=== PATIENT | male | born 1985 | race African-American/Black ===

== ENCOUNTER 2020-02-17 21:49 | Emergency (ER) | payer OTHER ==
[~2020-02-17] VITALS: Ht 167.6 cm; Wt 70.0 kg
[2020-02-17] MEDS ORDERED: ALBUTEROL SULFATE 8GM INHALER. INH ONE (23:00)
[2020-02-17] MEDS ORDERED: predniSONE 10 MG TABLET PO ONE (23:00)
--- NOTE | 2020-02-17 23:08 | PHYS DOC ---
General Adult EDM: Chief Complaint: FEVER HPI: HPI: ".. I need a slip to get out of work... I had a fever.. 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 ".." I probably need to be off work...." Patient is a 34 year old male [facility] prisoner who presents with above hx and complaints fever, cough, and malaise. Patient recently transferred to [facility] after serving 6-[address] [facility] sentence for drug sales. Patient served time at [facility] one half which was at the camp. Patient denies any specific ill contacts but there have been cases of Covid at the [facility]. No history of exposure to tuberculosis. Patient has previous negative testing.. No recent travel. No history immunosuppression. Normally healthy. Patient did receive his tetanus and flu vaccination before recent transfer to the [facility]. Patient currently works at the [employer]. Review of Systems: Review of Systems: Constitutional: History of fever or chills Eyes: Denies change in visual acuity HENT: Denies nasal congestion or sore throat Respiratory: History of cough Cardiovascular: Denies chest pain or edema GI: Denies abdominal pain, nausea, vomiting, bloody stools or diarrhea : Denies dysuria Musculoskeletal: Denies back pain or joint pain Integument: Denies rash Neurologic: Denies headache, focal weakness or sensory changes Endocrine: Denies polyuria or polydipsia Lymphatic: Denies swollen glands Psychiatric: Denies depression or anxiety Family History: Family History: Noncontributory to presentation Current Medications: Current Meds: Current Medications Medications (Trade) Dose Ordered Sig/Fiona Start Time Stop Time Status Last Admin Dose Admin Albuterol Sulfate (Ventolin Hfa Inhaler) 2 puff 1X ONCE 02/17/20 23:00 02/17/20 23:01 UNV Prednisone (Prednisone) 50 mg 1X ONCE 02/17/20 23:00 02/17/20 23:01 UNV Allergies: Allergies: Allergies Coded Allergies Type Severity Reaction Last Updated Verified No Known Drug Allergies 02/17/20 No Physical Exam: PE: Constitutional: Well developed, well nourished, no acute distress, non-toxic appearance. [] HENT: Normocephalic, atraumatic, bilateral external ears normal, oropharynx moist, no oral exudates, nose slightly swollen turbinates with clear rhinorrhea.. Mild pharyngeal injection. Postnasal drainage. Eyes: PERRLA, EOMI, conjunctiva normal, no discharge. [] Neck: Normal range of motion, no tenderness, supple, no stridor. Palpable thyroid area. Cardiovascular:Heart rate regular rhythm, no murmur [] Lungs & Thorax: Bilateral breath sounds equal apex with scattered wheezes on auscultation [] Abdomen: Bowel sounds normal, soft, no tenderness, no masses, no pulsatile masses. [] Skin: Warm, dry, no erythema, no rash. [] Back: No tenderness, no CVA tenderness. [] Extremities: No tenderness, no cyanosis, no clubbing, ROM intact, no edema. [] Neurologic: Alert and oriented X 3, normal motor function, normal sensory function, no focal deficits noted. [] Psychologic: Affect anxious, judgement normal, mood normal. [] EKG: EKG: [] Radiology/Procedures: Radiology/Procedures: [][place] [id number] IMAGING REPORT Signed PATIENT: PATSY PARADA ACCOUNT: [id number] : 1985 LOCATION: ER AGE: 34 SEX: M EXAM STATUS: REG ER ORD. PHYSICIAN: YURY WEST MD REASON: COUGH, CHILLS, FEVER PROCEDURE: PORTABLE CHEST 1V INDICATION: Reason: COUGH, CHILLS, FEVER / Spl. Instructions: / History: COMPARISON: None. FINDINGS: Single view of chest obtained. Cardiac silhouette is not enlarged. No focal airspace consolidation or pulmonary edema. There is some deviation of the trachea to the right. IMPRESSION: * No focal airspace consolidation or pulmonary edema. * There is some deviation of the trachea to the right within the superior mediastinum. Nonspecific in nature with one of the more common causes including substernal goiter but nonspecific appearance and follow-up ultrasound could BE obtained to assess for thyroid tissue in the region. Electronically signed by: Aria Howard MD (02/17/2020 11:49 PM) [id number] DICTATED AND SIGNED BY: ARIA HOWARD MD DATE: 02/17/20 2349 CC: YURY WEST MD; PCP,NO ~ Heart Score: Risk Factors: Risk Factors: DM, Current or recent (<one month) smoker, HTN, HLP, family history of CAD, obesity. Risk Scores: Score 0 - 3: 2.5% MACE over next 6 weeks - Discharge Home Score 4 - 6: 20.3% MACE over next 6 weeks - Admit for Clinical Observation Score 7 - 10: 72.7% MACE over next 6 weeks - Early Invasive Strategies Course & Med Decision Making: Course & Med Decision Making Pertinent Labs and Imaging studies reviewed. (See chart for details) Patient take Tylenol and ibuprofen as needed for discomfort. Patient self isolate for 10 days. Patient to wear face mask covering nose and mouth at all times. If needed obtain a rapid Covid-at [facility] per department or other centers. Advised patient currently rapid not offered at our institution. Patient to use MDI 2 puffs 4 times a day. Follow-up primary care. Must follow- up possible enlarged thyroid recommend ultrasound and possible CT after ultrasound after the findings reviewed with primary. Does have findings of a deviated trachea on single view chest x-ray. Explained the patient this may be due to thyroid or other pathology including cancer must be followed up closely. The patient return if any concerns. Impression: 1. Viral syndrome 2. Deviated trachea [] Dragon Disclaimer: Dragon Disclaimer: This electronic medical record was generated, in whole or in part, using a voice recognition dictation system. Departure Departure: Disposition: 01 [place] HOME SELF CARE/HOMELESS Condition: STABLE Referrals: PCP,NO (PCP) [place] Disclaimer This chart was dictated in whole or in part using Voice Recognition software in a busy, high-work load, and often noisy Emergency Department environment. It may contain unintended and wholly unrecognized errors or omissions. Dragon Disclaimer This chart was dictated in whole or in part using Voice Recognition software in a busy, high-work load, and often noisy Emergency Department environment. It may contain unintended and wholly unrecognized errors or omissions. Dragon Disclaimer This chart was dictated in whole or in part using Voice Recognition software in a busy, high-work load, and often noisy Emergency Department environment. It may contain unintended and wholly unrecognized errors or omissions. YURY WEST MD Feb 17, 2020 23:08
--- NOTE | 2020-02-17 23:52 | RAD ---
INDICATION: Reason: COUGH, CHILLS, FEVER / Spl. Instructions: / History: COMPARISON: None. FINDINGS: Single view of chest obtained. Cardiac silhouette is not enlarged. No focal airspace consolidation or pulmonary edema. There is some deviation of the trachea to the right. IMPRESSION: * No focal airspace consolidation or pulmonary edema. * There is some deviation of the trachea to the right within the superior mediastinum. Nonspecific in nature with one of the more common causes including substernal goiter but nonspecific appearance and follow-up ultrasound could BE obtained to assess for thyroid tissue in the region. Electronically signed by: Brian Howard MD (02/17/2020 11:49 PM) [id number]
[2020-02-17 23:58] LABS: INFLUENZA A PATIENT NEGATIVE (NEGATIVE); INFLUENZA B PATIENT NEGATIVE (NEGATIVE)
[2020-02-18 01:38] VITALS: BP 128/80
== END 2020-02-18 01:38 | disposition home or self-care (01) ==
LOC: ER 21:49
DX: U07.1 COVID-19 (principal); B34.9 Viral infection, unspecified; J39.8 Other specified diseases of upper respiratory tract; R50.9 Fever, unspecified; R05 Cough; R53.81 Other malaise
CPT/HCPCS: 71045; 87070; 87804; 87880; 94640; 99284; C9803; J7512; J7613; U0003; 94664